=== PATIENT | male | born 1985 | race Caucasian/White ===

== ENCOUNTER 2018-09-08 21:17 | Emergency (ER) | payer SELFPAY ==
[2018-09-08 21:41] VITALS: RESP 20
[2018-09-08] MEDS ORDERED: Sodium Chloride 0.9% 1,000 ML IV ONE (22:13)
--- NOTE | 2018-09-08 22:26 | C.PDOC ---
History Of Present Illness 33 y/o male, with Hx of gallstones, presents to the ED complaining of epigastric pain since this evening. The patient states he has been fasting today. He denies any dysuria, hematuria, fever or nausea. Denies constipation/diarrhea, flank pain, chest pain or shortness of breath. Time Seen by Provider: 09/08/18 21:59 Chief Complaint (Nursing): Abdominal Pain History Per: Patient History/Exam Limitations: no limitations Onset/Duration Of Symptoms: Hrs Current Symptoms Are (Timing): Still Present Context: Other (Fasting) Location Of Pain/Discomfort: Epigastric Quality Of Discomfort: "Pain" Associated Symptoms: denies: Fever, Nausea Recent travel outside of the [place]: No Past Medical History Reviewed: Historical Data, Nursing Documentation, Vital Signs Vital Signs: Last Vital Signs Temp 98.3 F 09/08/18 21:38 Pulse 71 09/08/18 21:38 Resp 20 09/08/18 21:38 BP 108/69 09/08/18 21:38 Pulse Ox 95 09/08/18 21:38 - Medical History PMH: No Chronic Diseases Surgical History: No Surg Hx Family History: States: Unknown Family Hx - Social History Hx Alcohol Use: No Hx Substance Use: No Review Of Systems Except As Marked, All Systems Reviewed And Found Negative. Constitutional: Negative for: Fever, Chills Gastrointestinal: Positive for: Abdominal Pain (epigastric pain) Genitourinary: Negative for: Dysuria, Hematuria Physical Exam - Physical Exam Appears: Non-toxic, No Acute Distress Skin: Normal Color, Warm, Dry Head: Atraumatic, Normacephalic Eye(s): bilateral: PERRL, EOMI Ear(s): Bilateral: Normal Oral Mucosa: Moist Neck: Trachea Midline, Supple Chest: Symmetrical Cardiovascular: Rhythm Regular, No Murmur Respiratory: Normal Breath Sounds, No Rales, No Rhonchi, No Wheezing Gastrointestinal/Abdominal: Soft, Tenderness (RUQ tenderness), No Distention Extremity: Bilateral: Normal Color And Temperature, Normal ROM Pulses: Left Dorsalis Pedis: Normal, Right Dorsalis Pedis: Normal Neurological/Psych: Oriented x3 Gait: Steady ED Course And Treatment - Laboratory Results Result Diagrams: 09/08/18 23:42 09/08/18 23:42 O2 Sat by Pulse Oximetry: 95 (RA) Pulse Ox Interpretation: Normal - CT Scan/US Abdomen US Other Rad Studies (CT/US): Read By Radiologist, Radiology Report Reviewed CT/US Interpretation: Clinical history: Right upper quadrant pain. Findings: The pancreas is limited in visualization secondary to overlying bowel gas, but appears grossly unremarkable. The liver demonstrates increased echotexture and echogenicity, with no mass lesions. The gallbladder contains multiple small echogenic shadowing foci. There is no evidence of gallbladder wall thickening. The common bile duct measures 5 mm and is within normal limits. The right kidney measures 10 cm in length and is unremarkable. There is normal portal venous blood flow. There is no ascites. Impression: 1. Cholelithiasis without evidence of acute cholecystitis. 2. Fatty infiltration of the liver. Progress Note: Ordered: EKG, CMP, Lipase, Magnesium, phosphorous, CBC, UA and Abdomen US. Medications given in ED: IV Fluids, Tordol 30 mg IV and Zofran Inj Medical Decision Making Medical Decision Making: EKG shows NSR at 75bpm with normal intervals and no ST changes. Chemistry grossly normal. UA negative for blood. No complaint of flank pain. U/s shows "Cholelithiasis without evidence of acute cholecystitis. Fatty infiltratation of the liver." 12:35PM Patient reports that abdominal pain is resolved. Differential gastritis vs gallstone attack. He was informed of his elevated wbc. He was also made aware of ketones and glucose in urine. He is afebrile, well appearing and is now pain free. He was instructed on the importance of following up with PMD and GI and returning with any worsening symptoms. Disposition - Disposition Referrals: Turner Suarez MD [Staff Provider] - Sommer Nicole MD [Staff Provider] - Disposition: HOME/ ROUTINE Disposition Time: 00:37 Condition: GOOD Additional Instructions: Follow-up with PMD within 2 days. Return to ED if condition worsens. Take full course of antibiotics. Prescriptions: Metronidazole [Flagyl] 500 mg PO TID #30 tablet Instructions: Gastritis, Gallstones Forms: [employer] ([place]) - Clinical Impression Clinical Impression: Cholelithiasis, Gastritis - PA / ADMINISTRATION SPECIALIST / Resident Statement MD/DO has reviewed & agrees with the documentation as recorded. - Scribe Statement The provider has reviewed the documentation as recorded by the Scribe (Maggy Minguez) Provider Attestation: All medical record entries made by the Scribe were at my direction and personal ly dictated by me. I have reviewed the chart and agree that the record accurately reflects my personal performance of the history, physical exam, medical decision making, and the department course for this patient. I have also personally directed, reviewed, and agree with the discharge instructions and disposition.
[2018-09-08] MEDS ORDERED: Sodium Chloride 0.9% 1,000 ML ONE (22:29)
[2018-09-08] MEDS ORDERED: Morphine 4 MG/ML VIAL ONE (23:44)
[2018-09-08 23:45] LABS: BASO # 0.1 K/uL (0.0-0.2); BASO % 0.5 % (0.0-2.0); EOS # 0.1 K/uL (0.0-0.7); EOS % 0.8 % (0.0-4.0); HEMOGLOBIN 13.4 g/dL (12.0-18.0); LYMPH # 3.4 K/uL (1.0-4.3); LYMPH % 20.8 % (20.0-40.0); MEAN CELL VOLUME 80.3 fL (80.0-94.0); MEAN CORPUSCULAR HEMOGLOBIN 26.9 pg (27.0-31.0); MEAN CORPUSCULAR HGB CONC 33.5 g/dL (33.0-37.0); MEAN PLATELET VOLUME 8.9 fL (7.2-11.7); MONO % 5.9 % (0.0-10.0); NEUT # 11.9 K/uL (1.8-7.0); RBC 4.98 Mil/uL (4.40-5.90); RED CELL DISTRIBUTION WIDTH 13.8 % (11.5-14.5); WHITE BLOOD COUNT 16.5 K/uL (4.8-10.8)
[2018-09-08 23:59] LABS: ALB/GLOB RATIO 1.6 (1.0-2.1); ALBUMIN 4.8 g/dL (3.5-5.0); ALT/SGPT 65 U/L (21-72); AST/SGOT 29 U/L (17-59); BLOOD UREA NITROGEN 12 mg/dL (9-20); CALCIUM 9.4 mg/dl (8.6-10.4); GFR NON-AFRICAN AMERICAN > 60; LIPASE 106 U/L (23-300)
[2018-09-09] MEDS ORDERED: Sodium Chloride 0.9% 1,000 ML IV ONE (00:01)
[2018-09-09 00:11] LABS: URINE BILIRUBIN NEGATIVE (NEGATIVE); URINE BLOOD NEGATIVE (NEGATIVE); URINE CLARITY Clear (Clear); URINE COLOR Yellow (YELLOW); URINE GLUCOSE (UA) 3+ mg/dL (Normal); URINE LEUKOCYTE ESTERASE NEG Leu/uL (Negative); URINE PROTEIN NEGATIVE (NEGATIVE); URINE UROBILINOGEN NORMAL mg/dL (0.2-1.0)
[2018-09-09 01:26] VITALS: BP 110/71; PULSE 78; TEMP 97.8; O2SAT 99
--- NOTE | 2018-09-09 09:02 | US ---
Date of service: 09/08/2018 HISTORY: RUQ pain COMPARISON: None. TECHNIQUE: Grayscale imaging was performed. FINDINGS: LIVER: Measures 15.3 cm in length. There is mild diffuse increased echogenicity of the liver parenchyma with focal fatty sparing adjacent to the gallbladder fossa. No mass. No intrahepatic bile duct dilatation. GALLBLADDER: There are small gallstones. Small amount of pericholecystic fluid. There is there is no wall thickening. The sonographic Mulligan's sign is negative. COMMON BILE DUCT: Measures 4.8 mm. No stones. No dilatation. PANCREAS: Unremarkable as visualized. No mass. No ductal dilatation. RIGHT KIDNEY: Measures 9.9 cm in length. Normal echogenicity. No calculus, mass, or hydronephrosis. AORTA: No aneurysmal dilatation. IVC: Unremarkable. OTHER FINDINGS: None . IMPRESSION: Fatty liver with focal fatty sparing adjacent to the gallbladder fossa. Cholelithiasis and small amount of pericholecystic fluid. No wall thickening or positive sonographic Mulligan's sign. A preliminary report was provided by [facility] [address].
--- NOTE | 2018-09-09 15:39 | CARD ---
APPROVED REPORT Date of service: 09/08/2018 EKG Measurement Heart [id number] <Conclusion> Normal sinus rhythm Normal ECG
== END 2018-09-09 01:25 | disposition home or self-care (01) ==
LOC: C.ER 21:17
DX: K80.20 Calculus of gallbladder without cholecystitis without obstruction (principal); K29.70 Gastritis, unspecified, without bleeding
CPT/HCPCS: 76705; 80053; 81001; 83690; 83735; 84100; 85025; 93005; 96361; 96374; 96375; 99285; J1885; J2270; J2405; J7030